=== PATIENT | male | born 1980 | race Caucasian/White ===

== ENCOUNTER 2023-11-05 19:00 | Emergency (ER) | payer BC ==
[2023-11-05] MEDS ORDERED: Orphenadrine 60 MG/2 ML Inj IM ONE (19:12)
[2023-11-05] MEDS ORDERED: Ketorolac 30 MG/ML SDV IM ONE (19:12)
[2023-11-05] MEDS ORDERED: Take Home: Cyclobenzaprine 10 MG Tab, 4 Tab Pack PO ONE (19:56)
[2023-11-05] MEDS ORDERED: Take Home: Acetaminophen/HYDROcodone 325-5 MG, 5 Tab Pack PO ONE (19:56)
== END 2023-11-05 20:10 | disposition home or self-care (01) ==
LOC: LL.ED 19:00
DX: M54.50 Low back pain, unspecified (principal); W00.9XXA Unspecified fall due to ice and snow, initial encounter
CPT/HCPCS: 72100; 96372; 99283; A9270-GY; J1885; J2360